=== PATIENT | male | born 1945 | race Caucasian/White ===

== ENCOUNTER 2021-02-20 15:04 | Emergency (ER) | payer MEDICARE ==
[2021-02-20 16:42] LABS: #Lymphocytes 0.7 thou/uL (1.20-3.40); #Neutrophils 14.8 thou/uL (1.40-6.50); %Basophils 0.1 % (0.0-1.0); %Eosinophils 0.2 % (0.0-10.0); %Lymphocytes 4.1 % (21.0-51.0); %Monocytes 6.1 % (0.0-10.0); %Neutrophils 89.6 % (42.0-75.0); Hemoglobin 14.8 g/dL (14.0-18.0); Mean Corpuscular Hemoglobin 29.6 pg (27.0-31.0); Mean Corpuscular Volume 92.5 fL (78.0-98.0); Mean Platelet Volume 7.3 fL (7.4-10.4); Platelet Count 331 thou/uL (130-400); RBC Distribution Width 12.5 % (11.5-14.5); Red Blood Cell (RBC) Count 4.99 mill/uL (4.70-6.10); White Blood Cell (WBC) Count 16.5 thou/uL (4.8-10.8)
[2021-02-20 17:02] LABS: ALT (SGPT) 10 U/L (8-55); AST (SGOT) 30 U/L (5-34); Albumin 3.6 g/dL (3.4-4.8); Alkaline Phosphatase 107 U/L (40-110); Anion Gap 18 mmol/L (10-20); BUN (Urea Nitrogen) 29 mg/dL (8.4-25.7); Calc. Creatinine Clearance 0 mL/min (70-130); Calcium 8.8 mg/dL (7.8-10.44); Carbon Dioxide 21 mmol/L (23-31); Chloride 104 mmol/L (98-107); Globulin 3.7 g/dL (2.4-3.5); Glucose 119 mg/dL (83-110); Magnesium 1.9 mg/dL (1.6-2.6); Potassium 4.3 mmol/L (3.5-5.1); Protein, Total 7.3 g/dL (5.8-8.1); Sodium 139 mmol/L (136-145)
[2021-02-20 17:24] LABS: CKMB 2.9 ng/mL (0-6.6)
[2021-02-20 17:41] LABS: SARS-CoV-2 NAA Rapid Test DETECTED (NotDetected)
[2021-02-20] MEDS ORDERED: Aspirin 325 MG TAB ONE (17:58)
[2021-02-20] MEDS ORDERED: Enoxaparin Sodium 100 MG/ML SYRINGE ONE (17:58)
[2021-02-20] MEDS ORDERED: cefTRIAXone\\ROCEPHIN 2 GM VIAL ONE (18:15)
[2021-02-20] MEDS ORDERED: Vancomycin HCl 2.5 GM in Sodium Chloride 0.9% 500 ML IVPB SCH (18:30)
[2021-02-20] MEDS ORDERED: Sodium Chloride 0.9% 500 ML IVPB SCH (18:30)
[2021-02-20] MEDS ORDERED: Aspirin 325 MG TAB PO SCH (18:30)
[2021-02-20] MEDS ORDERED: cefTRIAXone\\ROCEPHIN 2 GM in Sodium Chloride 0.9% 100 ML IVPB SCH (18:30)
[2021-02-20 20:15] LABS: Lactic Acid 2.3 mmol/L (0.5-2.2)
[2021-02-20 20:20] LABS: Troponin I 0.136 ng/mL (< 0.028)
[2021-02-20 20:22] LABS: Bacteria/HPF None Seen HPF (None Seen); Bilirubin Negative (Negative); Blood, Urine Negative (Negative); Clarity Clear (Clear); Glucose, Urine (Dipstick) Normal (Negative); Ketone, Urine Negative (Negative); Leukocyte Negative Leu/uL (Negative); Nitrite Negative (Negative); Protein, Urine (Dipstick) 30 mg/dL (Neg-Trace); RBC/HPF 0-3 HPF (0-3); Specific Gravity, Urine 1.023 (1.002-1.036); Squamous Epithelial 0-3 HPF (0-3); Urobilinogen Normal mg/dL (Less than 2); pH, Urine 5.5 (5.0-9.0)
== END 2021-02-20 20:49 | disposition left against medical advice (07) ==
LOC: ERS 15:04
DX: U07.1 COVID-19 (principal); D72.829 Elevated white blood cell count, unspecified; R77.8 Other specified abnormalities of plasma proteins; I10 Essential (primary) hypertension
CPT/HCPCS: 71045; 80053; 82553; 83605; 83735; 83880; 84484 ×2; 85025; 85379; 85652; 86140; 87040; 87086; 93005; 94760; 96365; 96372; 96375; 99284; U0002; 36415; 81003; 81015; J0696; J1650; J3370; J7030

== ENCOUNTER 2021-02-23 08:55 | Inpatient (IN) | payer MEDICARE ==
[2021-02-23] MEDS ORDERED: Albuterol 200 PUFF (6.7GM INHALER) ONE (10:43)
[2021-02-23] MEDS ORDERED: Dexamethasone 10 MG/ML VIAL ONE (10:43)
[2021-02-23 10:45] LABS: #Eosinphils 0.1 thou/uL (0.0-0.7); #Lymphocytes 0.8 thou/uL (1.20-3.40); #Monocytes 0.4 thou/uL (0.11-0.59); #Neutrophils 12.8 thou/uL (1.40-6.50); %Basophils 0.2 % (0.0-1.0); %Eosinophils 0.5 % (0.0-10.0); %Lymphocytes 5.7 % (21.0-51.0); %Monocytes 2.7 % (0.0-10.0); %Neutrophils 90.9 % (42.0-75.0); Hemoglobin 13.6 g/dL (14.0-18.0); Mean Corpuscular HGB CONC 32.1 g/dL (32.0-36.0); Mean Corpuscular Hemoglobin 29.7 pg (27.0-31.0); Mean Corpuscular Volume 92.5 fL (78.0-98.0); Mean Platelet Volume 7.3 fL (7.4-10.4); Platelet Count 362 thou/uL (130-400); RBC Distribution Width 12.7 % (11.5-14.5); Red Blood Cell (RBC) Count 4.58 mill/uL (4.70-6.10)
[2021-02-23 11:07] LABS: ALT (SGPT) 7 U/L (8-55); AST (SGOT) 25 U/L (5-34); Alkaline Phosphatase 106 U/L (40-110); Anion Gap 16 mmol/L (10-20); BUN (Urea Nitrogen) 19 mg/dL (8.4-25.7); Calc. Creatinine Clearance 0 mL/min (70-130); Calcium 8.3 mg/dL (7.8-10.44); Carbon Dioxide 19 mmol/L (23-31); Chloride 109 mmol/L (98-107); Globulin 3.2 g/dL (2.4-3.5); Glucose 112 mg/dL (83-110); Magnesium 1.8 mg/dL (1.6-2.6); Potassium 3.8 mmol/L (3.5-5.1); Protein, Total 6.2 g/dL (5.8-8.1); Sodium 140 mmol/L (136-145)
[2021-02-23 11:28] LABS: CKMB 1.9 ng/mL (0-6.6)
[2021-02-23] MEDS ORDERED: Benzonatate 100 MG CAP PO PRN (12:18)
[2021-02-23] MEDS ORDERED: Melatonin 3 MG TAB PO PRN (12:18)
[2021-02-23] MEDS ORDERED: Azithromycin 500 MG VIAL ONE (12:38)
[2021-02-23] MEDS ORDERED: cefTRIAXone\\ROCEPHIN 2 GM VIAL ONE (12:38)
[2021-02-23] MEDS ORDERED: Aspirin 325 MG TAB ONE (12:38)
[2021-02-23] MEDS ORDERED: Albuterol 200 PUFF (6.7GM INHALER) INH PRN (12:54)
[2021-02-23] MEDS ORDERED: Ondansetron PF 4 MG/2 ML Vial IVP PRN (14:45)
[2021-02-23] MEDS ORDERED: Ondansetron ODT 4 MG TAB SL PRN (14:45)
[2021-02-23 14:50] LABS: Troponin I 0.125 ng/mL (< 0.028)
[2021-02-23] MEDS ORDERED: Iopamidol-370 76% 500 ML 1 ML ONE (15:23)
[2021-02-23 17:01] LABS: Troponin I 0.116 ng/mL (< 0.028)
[2021-02-23] MEDS ORDERED: hydrALAZINE 20 MG/ML VIAL SLOW IVP PRN (18:47)
[2021-02-23] MEDS ORDERED: Metoprolol Tartrate 25 MG TAB PO SCH (19:00)
[2021-02-23] MEDS: guaiFENesin ER 600 MG TAB PO SCH (20:15)
[2021-02-23] MEDS: Cholecalciferol 1,000 UNITS (25 MCG) TAB PO SCH (20:15)
[2021-02-23] MEDS: Ascorbic Acid 500 mg Chewable Tablet PO SCH (20:15)
[2021-02-23] MEDS ORDERED: Famotidine 20 MG TAB PO SCH (21:00)
[2021-02-24 05:38] LABS: #Lymphocytes 0.4 thou/uL (1.20-3.40); #Monocytes 0.3 thou/uL (0.11-0.59); #Neutrophils 7.5 thou/uL (1.40-6.50); %Basophils 0.2 % (0.0-1.0); %Eosinophils 0.3 % (0.0-10.0); %Lymphocytes 5.1 % (21.0-51.0); %Neutrophils 90.3 % (42.0-75.0); Hemoglobin 12.9 g/dL (14.0-18.0); Mean Corpuscular HGB CONC 32.2 g/dL (32.0-36.0); Mean Corpuscular Hemoglobin 29.7 pg (27.0-31.0); Mean Corpuscular Volume 92.2 fL (78.0-98.0); Mean Platelet Volume 7.5 fL (7.4-10.4); Platelet Count 390 thou/uL (130-400); RBC Distribution Width 12.8 % (11.5-14.5); Red Blood Cell (RBC) Count 4.36 mill/uL (4.70-6.10); White Blood Cell (WBC) Count 8.3 thou/uL (4.8-10.8)
[2021-02-24 06:00] LABS: ALT (SGPT) 10 U/L (8-55); AST (SGOT) 21 U/L (5-34); Albumin 2.8 g/dL (3.4-4.8); Alkaline Phosphatase 96 U/L (40-110); Anion Gap 16 mmol/L (10-20); BUN (Urea Nitrogen) 21 mg/dL (8.4-25.7); Bilirubin, Total 0.7 mg/dL (0.2-1.2); Calc. Creatinine Clearance 103 mL/min (70-130); Calcium 8.3 mg/dL (7.8-10.44); Carbon Dioxide 19 mmol/L (23-31); Chloride 108 mmol/L (98-107); Globulin 3.2 g/dL (2.4-3.5); Glucose 152 mg/dL (83-110); Potassium 3.9 mmol/L (3.5-5.1); Sodium 139 mmol/L (136-145)
[2021-02-24] MEDS: Finasteride 5 MG TAB PO SCH (09:36)
[2021-02-24] MEDS: Zinc Sulfate 220 MG CAP PO SCH (09:36)
[2021-02-24] MEDS: Enoxaparin Sodium 40 MG/0.4 ML SYRINGE SC SCH (09:36)
[2021-02-24] MEDS: Aspirin 81 mg Enteric Coated Tablet PO SCH (09:36)
[2021-02-24] MEDS: Ascorbic Acid 500 mg Chewable Tablet PO SCH ×2 (09:36→20:34)
[2021-02-24] MEDS: guaiFENesin ER 600 MG TAB PO SCH ×2 (09:36→20:34)
[2021-02-24] MEDS: Metoprolol Tartrate 25 MG TAB PO SCH (09:36)
[2021-02-24] MEDS: Dexamethasone 4 MG TAB PO SCH (09:36)
[2021-02-24] MEDS: Azithromycin 500 MG in Sodium Chloride 0.9% 250 ML 250 ML IVPB SCH (10:22)
[2021-02-24] MEDS: cefTRIAXone\\ROCEPHIN 2 GM in Sodium Chloride 0.9% 100 ML IVPB SCH (13:40)
[2021-02-24] MEDS: Cholecalciferol 1,000 UNITS (25 MCG) TAB PO SCH (20:34)
[2021-02-24] MEDS: Nystatin Ointment 15 GM TUBE TOP SCH (20:35)
[2021-02-25] MEDS ORDERED: hydrOXYzine 25 MG TAB PO PRN (00:19)
[2021-02-25] MEDS: Lorazepam 2 MG/ML VIAL SLOW IVP PRN ×2 (01:22→02:03)
[2021-02-25 06:10] LABS: ALT (SGPT) 12 U/L (8-55); AST (SGOT) 24 U/L (5-34); Albumin 2.8 g/dL (3.4-4.8); Alkaline Phosphatase 94 U/L (40-110); Anion Gap 14 mmol/L (10-20); BUN (Urea Nitrogen) 28 mg/dL (8.4-25.7); Bilirubin, Total 0.6 mg/dL (0.2-1.2); Calc. Creatinine Clearance 93 mL/min (70-130); Calcium 8.5 mg/dL (7.8-10.44); Carbon Dioxide 21 mmol/L (23-31); Chloride 111 mmol/L (98-107); Globulin 3.6 g/dL (2.4-3.5); Glucose 142 mg/dL (83-110); Protein, Total 6.4 g/dL (5.8-8.1); Sodium 142 mmol/L (136-145)
[2021-02-25] MEDS: Enoxaparin Sodium 40 MG/0.4 ML SYRINGE SC SCH (08:53)
[2021-02-25] MEDS: guaiFENesin ER 600 MG TAB PO SCH ×2 (08:53→21:32)
[2021-02-25] MEDS: Metoprolol Tartrate 25 MG TAB PO SCH (08:53)
[2021-02-25] MEDS: Dexamethasone 4 MG TAB PO SCH (08:53)
[2021-02-25] MEDS: Finasteride 5 MG TAB PO SCH (08:53)
[2021-02-25] MEDS: Zinc Sulfate 220 MG CAP PO SCH (08:53)
[2021-02-25] MEDS: Aspirin 81 mg Enteric Coated Tablet PO SCH (08:53)
[2021-02-25] MEDS: Ascorbic Acid 500 mg Chewable Tablet PO SCH ×2 (08:53→21:32)
[2021-02-25] MEDS: Nystatin Ointment 15 GM TUBE TOP SCH ×2 (08:54→21:32)
[2021-02-25] MEDS: Azithromycin 500 MG in Sodium Chloride 0.9% 250 ML 250 ML IVPB SCH (09:00)
[2021-02-25] MEDS: cefTRIAXone\\ROCEPHIN 2 GM in Sodium Chloride 0.9% 100 ML IVPB SCH (14:27)
[2021-02-25] MEDS ORDERED: OLANZapine ODT 5 MG TAB SL PRN (18:24)
[2021-02-25 19:37] LABS: Thyroid Stimulating Hormone 0.0658 uIU/mL (0.35-4.94)
[2021-02-25] MEDS: OLANZapine 10 MG VIAL IM PRN (21:08)
[2021-02-25] MEDS: Cholecalciferol 1,000 UNITS (25 MCG) TAB PO SCH (21:32)
[2021-02-25] MEDS ORDERED: diphenhydrAMINE 12.5 MG/5 ML UDCUP PO SCH (23:28)
[2021-02-25] MEDS ORDERED: diphenhydrAMINE 50 MG/ML VIAL IVP SCH (23:30)
[2021-02-26 05:49] LABS: #Basophils 0.1 thou/uL (0.0-0.2); #Lymphocytes 0.4 thou/uL (1.20-3.40); #Neutrophils 11.9 thou/uL (1.40-6.50); %Basophils 0.6 % (0.0-1.0); %Eosinophils 0.2 % (0.0-10.0); %Lymphocytes 3.2 % (21.0-51.0); %Monocytes 7.4 % (0.0-10.0); %Neutrophils 88.7 % (42.0-75.0); Hemoglobin 12.1 g/dL (14.0-18.0); Mean Corpuscular HGB CONC 33.1 g/dL (32.0-36.0); Mean Corpuscular Hemoglobin 30.4 pg (27.0-31.0); Mean Corpuscular Volume 91.7 fL (78.0-98.0); Mean Platelet Volume 7.4 fL (7.4-10.4); Platelet Count 334 thou/uL (130-400); RBC Distribution Width 12.8 % (11.5-14.5); Red Blood Cell (RBC) Count 3.98 mill/uL (4.70-6.10); White Blood Cell (WBC) Count 13.4 thou/uL (4.8-10.8)
[2021-02-26 06:16] LABS: ALT (SGPT) 11 U/L (8-55); AST (SGOT) 21 U/L (5-34); Albumin 2.6 g/dL (3.4-4.8); Alkaline Phosphatase 85 U/L (40-110); Anion Gap 14 mmol/L (10-20); BUN (Urea Nitrogen) 31 mg/dL (8.4-25.7); Bilirubin, Total 0.7 mg/dL (0.2-1.2); CRP (Inflammatory) 5.11 mg/dL (= or < 0.5); Calc. Creatinine Clearance 102 mL/min (70-130); Calcium 8.3 mg/dL (7.8-10.44); Carbon Dioxide 20 mmol/L (23-31); Chloride 113 mmol/L (98-107); Globulin 2.9 g/dL (2.4-3.5); Glucose 127 mg/dL (83-110); Potassium 3.9 mmol/L (3.5-5.1); Protein, Total 5.5 g/dL (5.8-8.1); Sodium 143 mmol/L (136-145)
[2021-02-26] MEDS: Zinc Sulfate 220 MG CAP PO SCH (10:04)
[2021-02-26] MEDS: Finasteride 5 MG TAB PO SCH (10:04)
[2021-02-26] MEDS: Ascorbic Acid 500 mg Chewable Tablet PO SCH ×3 (10:04→22:41)
[2021-02-26] MEDS: guaiFENesin ER 600 MG TAB PO SCH ×3 (10:05→22:41)
[2021-02-26] MEDS: Metoprolol Tartrate 25 MG TAB PO SCH (10:05)
[2021-02-26] MEDS: Enoxaparin Sodium 40 MG/0.4 ML SYRINGE SC SCH (10:05)
[2021-02-26] MEDS: Dexamethasone 4 MG TAB PO SCH (10:05)
[2021-02-26] MEDS: Aspirin 81 mg Enteric Coated Tablet PO SCH (10:05)
[2021-02-26] MEDS: Nystatin Ointment 15 GM TUBE TOP SCH ×3 (10:06→22:41)
[2021-02-26] MEDS: Azithromycin 500 MG in Sodium Chloride 0.9% 250 ML 250 ML IVPB SCH (10:09)
[2021-02-26] MEDS ORDERED: Dexamethasone 4 MG TAB PO SCH (12:30)
[2021-02-26] MEDS: cefTRIAXone\\ROCEPHIN 2 GM in Sodium Chloride 0.9% 100 ML IVPB SCH (13:04)
[2021-02-26] MEDS: OLANZapine 10 MG VIAL IM PRN (16:56)
[2021-02-26] MEDS: Cholecalciferol 1,000 UNITS (25 MCG) TAB PO SCH (20:31)
[2021-02-27 07:10] LABS: Hemoglobin 13.3 g/dL (14.0-18.0); Mean Corpuscular HGB CONC 32.1 g/dL (32.0-36.0); Mean Corpuscular Hemoglobin 30.3 pg (27.0-31.0); Mean Corpuscular Volume 94.2 fL (78.0-98.0); Platelet Count 278 thou/uL (130-400); RBC Distribution Width 13.2 % (11.5-14.5); Red Blood Cell (RBC) Count 4.39 mill/uL (4.70-6.10); White Blood Cell (WBC) Count 12.9 thou/uL (4.8-10.8)
[2021-02-27 07:12] LABS: ALT (SGPT) 11 U/L (8-55); AST (SGOT) 26 U/L (5-34); Albumin 2.5 g/dL (3.4-4.8); Alkaline Phosphatase 105 U/L (40-110); Anion Gap 18 mmol/L (10-20); BUN (Urea Nitrogen) 30 mg/dL (8.4-25.7); Bilirubin, Total 0.8 mg/dL (0.2-1.2); Calc. Creatinine Clearance 93 mL/min (70-130); Calcium 7.8 mg/dL (7.8-10.44); Carbon Dioxide 15 mmol/L (23-31); Chloride 116 mmol/L (98-107); Globulin 3.5 g/dL (2.4-3.5); Glucose 125 mg/dL (83-110); Potassium 4.8 mmol/L (3.5-5.1); Sodium 144 mmol/L (136-145)
[2021-02-27 08:22] LABS: Lymphocytes 6 % (21-51); MDiff Complete? YES; Monocytes 5 % (0-10); Neutrophil 85 % (42-75); Platelet Morphology Comment Appears Adequate; Polychromasia SLIGHT = 2-3 cells (100X) (0-2/hpf); Reactive Lymphocytes 4 % (0-10)
[2021-02-27] MEDS: Dexamethasone 4 MG TAB PO SCH (09:46)
[2021-02-27] MEDS: Ascorbic Acid 500 mg Chewable Tablet PO SCH ×2 (09:47→20:04)
[2021-02-27] MEDS: Metoprolol Tartrate 25 MG TAB PO SCH (09:47)
[2021-02-27] MEDS: Finasteride 5 MG TAB PO SCH (09:47)
[2021-02-27] MEDS: Zinc Sulfate 220 MG CAP PO SCH (09:47)
[2021-02-27] MEDS: guaiFENesin ER 600 MG TAB PO SCH ×2 (09:47→20:04)
[2021-02-27] MEDS: Aspirin 81 mg Enteric Coated Tablet PO SCH (09:47)
[2021-02-27] MEDS: Nystatin Ointment 15 GM TUBE TOP SCH ×2 (09:48→20:04)
[2021-02-27] MEDS: Enoxaparin Sodium 40 MG/0.4 ML SYRINGE SC SCH (09:48)
[2021-02-27] MEDS: Azithromycin 500 MG in Sodium Chloride 0.9% 250 ML 250 ML IVPB SCH (12:31)
[2021-02-27 12:48] LABS: Lactic Acid 1.6 mmol/L (0.5-2.2)
[2021-02-27 17:39] LABS: Actual Bicarbonate (HCO3a) 26.1 mEq/L (22-28); Base Excess (BEa) 1.5 mEq/L (-2.0 to +3.0); Calcium, Ionized (arterial) 1.22 mmol/L (1.12-1.30); Carboxyhemoglobin (COHb) 0.3 gm% (0.0-3.0); Hemoglobin (Hb) 13.7 g/dL (14.0-18.0); O2 Tension (PaO2), arterial 65.9 mmHg (> 70.0); Potassium - ABG Lab 4.18 mmol/L (3.70-5.30); pH, Arterial 7.42 (7.35-7.45)
[2021-02-27 17:42] LABS: Puncture Site LRA
[2021-02-27] MEDS: cefTRIAXone\\ROCEPHIN 2 GM in Sodium Chloride 0.9% 100 ML IVPB SCH (18:03)
[2021-02-27] MEDS: Cholecalciferol 1,000 UNITS (25 MCG) TAB PO SCH (20:04)
[2021-02-27] MEDS ORDERED: Melatonin 3 MG TAB PO SCH (21:00)
[2021-02-28] MEDS ORDERED: hydrALAZINE 25 MG TAB PO PRN (07:26)
[2021-02-28] MEDS: Nystatin Ointment 15 GM TUBE TOP SCH (08:11)
[2021-02-28] MEDS: Aspirin 81 mg Enteric Coated Tablet PO SCH (08:13)
[2021-02-28] MEDS: Ascorbic Acid 500 mg Chewable Tablet PO SCH ×2 (08:13→20:39)
[2021-02-28] MEDS: Zinc Sulfate 220 MG CAP PO SCH (08:13)
[2021-02-28] MEDS: Metoprolol Tartrate 25 MG TAB PO SCH (08:13)
[2021-02-28] MEDS: Finasteride 5 MG TAB PO SCH (08:14)
[2021-02-28] MEDS: Dexamethasone 4 MG TAB PO SCH (08:14)
[2021-02-28] MEDS: Enoxaparin Sodium 40 MG/0.4 ML SYRINGE SC SCH (08:15)
[2021-02-28] MEDS ORDERED: Amoxicillin/Potassium Clav 875 MG TAB PO SCH (09:00)
[2021-02-28] MEDS ORDERED: Azithromycin 250 MG TAB PO SCH (09:00)
[2021-02-28 13:22] LABS: ALT (SGPT) 13 U/L (8-55); AST (SGOT) 25 U/L (5-34); Albumin 2.6 g/dL (3.4-4.8); Alkaline Phosphatase 111 U/L (40-110); Anion Gap 10 mmol/L (10-20); BUN (Urea Nitrogen) 33 mg/dL (8.4-25.7); Bilirubin, Total 0.9 mg/dL (0.2-1.2); CRP (Inflammatory) 4.12 mg/dL (= or < 0.5); Calc. Creatinine Clearance 116 mL/min (70-130); Calcium 8.4 mg/dL (7.8-10.44); Carbon Dioxide 23 mmol/L (23-31); Chloride 113 mmol/L (98-107); Globulin 3.7 g/dL (2.4-3.5); Glucose 160 mg/dL (83-110); Potassium 4.3 mmol/L (3.5-5.1); Protein, Total 6.3 g/dL (5.8-8.1); Sodium 142 mmol/L (136-145)
[2021-02-28 13:44] LABS: Actual Bicarbonate (HCO3v) 24 mEq/L (22-28); Base Excess -0.7 mEq/L (-2.0 to +3.0); Calcium, Ionized (venous) 1.14 mmol/L (1.16-1.32); Chloride (VBG) 112 mmol/L (98-106); Hemoglobin (Hb) 14.7 g/dL (12.6-17.4); Potassium (VBG) 4.07 mmol/L (3.70-5.30); Sodium 143.6 mmol/L (133-146); pH (venous) 7.41 (7.32-7.43)
[2021-02-28 13:48] LABS: Hemoglobin 14.5 g/dL (14.0-18.0); Mean Corpuscular HGB CONC 32.2 g/dL (32.0-36.0); Mean Corpuscular Hemoglobin 30.2 pg (27.0-31.0); Platelet Count 324 thou/uL (130-400); RBC Distribution Width 12.9 % (11.5-14.5); White Blood Cell (WBC) Count 18.6 thou/uL (4.8-10.8)
[2021-02-28 14:07] LABS: Lactic Acid 1.9 mmol/L (0.5-2.2)
[2021-02-28 14:10] LABS: Anion Gap 11 mmol/L (10-20); BUN (Urea Nitrogen) 33 mg/dL (8.4-25.7); Calc. Creatinine Clearance 97 mL/min (70-130); Calcium 8.6 mg/dL (7.8-10.44); Carbon Dioxide 24 mmol/L (23-31); Chloride 112 mmol/L (98-107); Glucose 164 mg/dL (83-110); MDiff Complete? YES; Potassium 4.3 mmol/L (3.5-5.1); Sodium 143 mmol/L (136-145)
[2021-02-28 14:11] LABS: Band 1 % (5-11); Lymphocytes 2 % (21-51); Monocytes 5 % (0-10); Neutrophil 90 % (42-75); Platelet Morphology Comment Appears Adequate; Polychromasia SLIGHT = 2-3 cells (100X) (0-2/hpf); Reactive Lymphocytes 2 % (0-10)
[2021-02-28 15:27] LABS: Troponin I 1.361 ng/mL (< 0.028)
[2021-02-28] MEDS ORDERED: Sterile Water 10 ML VIAL FS PRN (15:45)
[2021-02-28] MEDS ORDERED: OLANZapine 10 MG VIAL IM SCH (15:45)
[2021-02-28] MEDS ORDERED: VANCOMYCIN 2 GRAM/400 ML BAG 2 GM in Premix Bag 1 BAG IVPB SCH (15:45)
[2021-02-28] MEDS ORDERED: MEROPENEM 1 GM/50 ML 1 GM in Premix Bag 1 BAG IVPB SCH (16:00)
[2021-02-28 19:35] LABS: Critical Call Chem Troponin I RESULT DECREASING; Troponin I 0.833 ng/mL (< 0.028)
[2021-02-28] MEDS: MEROPENEM 1 GM/50 ML 1 GM in Premix Bag 1 BAG IVPB SCH (20:39)
[2021-02-28] MEDS ORDERED: Meropenem 1 GM in Sodium Chloride 0.9% 100 ML IVPB SCH (22:00)
[2021-03-01] MEDS ORDERED: Labetalol HCl 100 MG/20 ML VIAL SLOW IVP SCH (01:30)
[2021-03-01 02:43] LABS: Troponin I 1.479 ng/mL (< 0.028)
[2021-03-01] MEDS: MEROPENEM 1 GM/50 ML 1 GM in Premix Bag 1 BAG IVPB SCH ×3 (04:22→20:19)
[2021-03-01 06:05] LABS: Anion Gap 15 mmol/L (10-20); BUN (Urea Nitrogen) 33 mg/dL (8.4-25.7); Calc. Creatinine Clearance 99 mL/min (70-130); Calcium 8.6 mg/dL (7.8-10.44); Carbon Dioxide 21 mmol/L (23-31); Chloride 114 mmol/L (98-107); Glucose 107 mg/dL (83-110); Potassium 4.3 mmol/L (3.5-5.1); Sodium 146 mmol/L (136-145)
[2021-03-01 08:56] LABS: Hemoglobin 14.2 g/dL (14.0-18.0); Mean Corpuscular Hemoglobin 30.1 pg (27.0-31.0); Mean Corpuscular Volume 93.9 fL (78.0-98.0); Mean Platelet Volume 7.9 fL (7.4-10.4); Platelet Count 304 thou/uL (130-400); Red Blood Cell (RBC) Count 4.73 mill/uL (4.70-6.10)
[2021-03-01 08:58] LABS: Band 2 % (5-11); Lymphocytes 3 % (21-51); Metamyelocyte 1 % (0-0); Monocytes 4 % (0-10); Neutrophil 88 % (42-75); Nucleated RBC 1 % (0)
[2021-03-01 09:00] LABS: Hypersemented Neutrophil SLIGHT; MDiff Complete? YES; Polychromasia SLIGHT = 2-3 cells (100X) (0-2/hpf); Reactive Lymphocytes 2 % (0-10)
[2021-03-01] MEDS: Aspirin 81 mg Enteric Coated Tablet PO SCH (09:00)
[2021-03-01] MEDS: Ascorbic Acid 500 mg Chewable Tablet PO SCH ×2 (09:00→20:19)
[2021-03-01] MEDS: Finasteride 5 MG TAB PO SCH (09:00)
[2021-03-01] MEDS: Metoprolol Tartrate 25 MG TAB PO SCH (09:00)
[2021-03-01] MEDS ORDERED: Dexamethasone 10 MG in Sodium Chloride 0.9% 50 ML IVPB SCH (09:00)
[2021-03-01] MEDS: Dexamethasone 10 MG/ML VIAL SLOW IVP SCH (09:00)
[2021-03-01] MEDS: Enoxaparin Sodium 40 MG/0.4 ML SYRINGE SC SCH (09:00)
[2021-03-01] MEDS: Zinc Sulfate 220 MG CAP PO SCH (09:00)
[2021-03-01] MEDS ORDERED: Iopamidol-370 76% 500 ML 1 ML ONE (10:49)
[2021-03-01] MEDS: VANCOMYCIN 2 GRAM/400 ML BAG 2 GM in Premix Bag 1 BAG IVPB SCH (16:03)
[2021-03-01 18:27] LABS: Troponin I 1.713 ng/mL (< 0.028)
[2021-03-01] MEDS: Enoxaparin Sodium 120 MG/0.8 ML SYRINGE SC SCH (21:32)
[2021-03-02] MEDS ORDERED: Acetaminophen 325 MG Suppository PR SCH (00:15)
[2021-03-02 03:43] LABS: Hemoglobin 13.9 g/dL (14.0-18.0); Mean Corpuscular HGB CONC 31.9 g/dL (32.0-36.0); Mean Corpuscular Hemoglobin 29.9 pg (27.0-31.0); Mean Corpuscular Volume 93.8 fL (78.0-98.0); Mean Platelet Volume 8.2 fL (7.4-10.4); Platelet Count 246 thou/uL (130-400); RBC Distribution Width 13.2 % (11.5-14.5); Red Blood Cell (RBC) Count 4.64 mill/uL (4.70-6.10); White Blood Cell (WBC) Count 17.9 thou/uL (4.8-10.8)
[2021-03-02 03:46] LABS: Anion Gap 15 mmol/L (10-20); BUN (Urea Nitrogen) 26 mg/dL (8.4-25.7); Calc. Creatinine Clearance 108 mL/min (70-130); Calcium 8.2 mg/dL (7.8-10.44); Carbon Dioxide 21 mmol/L (23-31); Chloride 116 mmol/L (98-107); Glucose 98 mg/dL (83-110); Potassium 3.9 mmol/L (3.5-5.1); Sodium 148 mmol/L (136-145)
[2021-03-02] MEDS: MEROPENEM 1 GM/50 ML 1 GM in Premix Bag 1 BAG IVPB SCH ×3 (03:53→20:58)
[2021-03-02 04:05] LABS: Critical Call Chem Troponin I RESULT DECREASING; Troponin I 1.695 ng/mL (< 0.028)
[2021-03-02 05:35] LABS: Band 1 % (5-11); Eosinophils 2 % (0-10); Lymphocytes 5 % (21-51); MDiff Complete? YES; Monocytes 3 % (0-10); Neutrophil 88 % (42-75); Reactive Lymphocytes 1 % (0-10)
[2021-03-02] MEDS: Enoxaparin Sodium 120 MG/0.8 ML SYRINGE SC SCH ×2 (09:31→20:59)
[2021-03-02] MEDS: Zinc Sulfate 220 MG CAP PO SCH (09:31)
[2021-03-02] MEDS: Finasteride 5 MG TAB PO SCH (09:31)
[2021-03-02] MEDS: Dexamethasone 10 MG/ML VIAL SLOW IVP SCH (09:32)
[2021-03-02] MEDS: Aspirin 81 mg Enteric Coated Tablet PO SCH (09:32)
[2021-03-02] MEDS: Ascorbic Acid 500 mg Chewable Tablet PO SCH ×2 (09:32→20:59)
[2021-03-02] MEDS: Metoprolol Tartrate 25 MG TAB PO SCH ×2 (09:32→21:00)
[2021-03-02 16:18] LABS: Vancomycin, Trough 24.4 ug/mL
[2021-03-02] MEDS: VANCOMYCIN 2 GRAM/400 ML BAG 2 GM in Premix Bag 1 BAG IVPB SCH (16:42)
[2021-03-02] MEDS ORDERED: Lorazepam 2 MG/ML VIAL SLOW IVP SCH (23:45)
[2021-03-03] MEDS: MEROPENEM 1 GM/50 ML 1 GM in Premix Bag 1 BAG IVPB SCH ×3 (04:38→21:32)
[2021-03-03 05:40] LABS: Magnesium 2.1 mg/dL (1.6-2.6)
[2021-03-03 07:52] LABS: #Lymphocytes 0.6 thou/uL (1.20-3.40); #Monocytes 0.6 thou/uL (0.11-0.59); %Eosinophils 0.2 % (0.0-10.0); %Lymphocytes 3.4 % (21.0-51.0); %Monocytes 3.3 % (0.0-10.0); %Neutrophils 93.1 % (42.0-75.0); Hemoglobin 13.3 g/dL (14.0-18.0); Mean Corpuscular Hemoglobin 29.5 pg (27.0-31.0); Mean Corpuscular Volume 95.3 fL (78.0-98.0); Platelet Count 222 thou/uL (130-400); RBC Distribution Width 13.3 % (11.5-14.5); Red Blood Cell (RBC) Count 4.49 mill/uL (4.70-6.10); White Blood Cell (WBC) Count 17.2 thou/uL (4.8-10.8)
[2021-03-03 08:09] LABS: ALT (SGPT) 11 U/L (8-55); AST (SGOT) 21 U/L (5-34); Albumin 2.6 g/dL (3.4-4.8); Alkaline Phosphatase 117 U/L (40-110); Anion Gap 11 mmol/L (10-20); BUN (Urea Nitrogen) 28 mg/dL (8.4-25.7); Bilirubin, Total 1.1 mg/dL (0.2-1.2); Calc. Creatinine Clearance 110 mL/min (70-130); Calcium 8.2 mg/dL (7.8-10.44); Carbon Dioxide 23 mmol/L (23-31); Chloride 114 mmol/L (98-107); Glucose 121 mg/dL (83-110); Potassium 4.3 mmol/L (3.5-5.1); Protein, Total 5.6 g/dL (5.8-8.1); Sodium 144 mmol/L (136-145)
[2021-03-03] MEDS: Zinc Sulfate 220 MG CAP PO SCH (10:00)
[2021-03-03] MEDS: Aspirin 81 mg Enteric Coated Tablet PO SCH (10:01)
[2021-03-03] MEDS: Finasteride 5 MG TAB PO SCH (10:01)
[2021-03-03] MEDS: Ascorbic Acid 500 mg Chewable Tablet PO SCH ×2 (10:01→21:33)
[2021-03-03] MEDS: Metoprolol Tartrate 25 MG TAB PO SCH ×2 (10:02→21:34)
[2021-03-03] MEDS: Enoxaparin Sodium 120 MG/0.8 ML SYRINGE SC SCH ×2 (10:03→21:35)
[2021-03-03] MEDS: Dextrose 5% in Water 1,000 ML IV SCH ×2 (10:05→21:59)
[2021-03-03] MEDS: Dexamethasone 10 MG/ML VIAL SLOW IVP SCH (10:05)
[2021-03-03] MEDS: Albuterol 200 PUFF (6.7GM INHALER) INH SCH ×2 (14:34→21:33)
[2021-03-03] MEDS: VANCOMYCIN 1.75 GM/350 ML BAG 1.75 GM in Premix Bag 1 BAG IVPB SCH (16:30)
[2021-03-04] MEDS: Albuterol 200 PUFF (6.7GM INHALER) INH SCH ×4 (01:21→18:52)
[2021-03-04] MEDS: MEROPENEM 1 GM/50 ML 1 GM in Premix Bag 1 BAG IVPB SCH ×3 (05:06→21:06)
[2021-03-04] MEDS ORDERED: Lorazepam 2 MG/ML VIAL ONE (05:50)
[2021-03-04 09:40] LABS: Hemoglobin 14.2 g/dL (14.0-18.0); Mean Corpuscular HGB CONC 31.3 g/dL (32.0-36.0); Mean Corpuscular Hemoglobin 29.8 pg (27.0-31.0); Mean Platelet Volume 8.7 fL (7.4-10.4); Platelet Count 248 thou/uL (130-400); RBC Distribution Width 13.6 % (11.5-14.5); Red Blood Cell (RBC) Count 4.76 mill/uL (4.70-6.10); White Blood Cell (WBC) Count 26.3 thou/uL (4.8-10.8)
[2021-03-04] MEDS: Zinc Sulfate 220 MG CAP PO SCH (09:58)
[2021-03-04] MEDS: Aspirin 81 mg Enteric Coated Tablet PO SCH (09:58)
[2021-03-04] MEDS: Metoprolol Tartrate 25 MG TAB PO SCH ×2 (09:58→21:06)
[2021-03-04] MEDS: Finasteride 5 MG TAB PO SCH (09:58)
[2021-03-04] MEDS: Enoxaparin Sodium 120 MG/0.8 ML SYRINGE SC SCH ×2 (09:58→21:05)
[2021-03-04] MEDS: Ascorbic Acid 500 mg Chewable Tablet PO SCH ×2 (09:58→21:06)
[2021-03-04] MEDS: Dexamethasone 10 MG/ML VIAL SLOW IVP SCH (09:59)
[2021-03-04 10:01] LABS: Magnesium 2.2 mg/dL (1.6-2.6)
[2021-03-04 10:02] LABS: ALT (SGPT) 12 U/L (8-55); AST (SGOT) 20 U/L (5-34); Albumin 2.8 g/dL (3.4-4.8); Alkaline Phosphatase 132 U/L (40-110); Anion Gap 12 mmol/L (10-20); BUN (Urea Nitrogen) 30 mg/dL (8.4-25.7); Bilirubin, Total 1.1 mg/dL (0.2-1.2); Calc. Creatinine Clearance 113 mL/min (70-130); Calcium 8.6 mg/dL (7.8-10.44); Carbon Dioxide 25 mmol/L (23-31); Chloride 113 mmol/L (98-107); Globulin 3.5 g/dL (2.4-3.5); Glucose 110 mg/dL (83-110); Potassium 4.5 mmol/L (3.5-5.1); Protein, Total 6.3 g/dL (5.8-8.1); Sodium 145 mmol/L (136-145)
[2021-03-04 10:49] LABS: Band 3 % (5-11); Lymphocytes 3 % (21-51); MDiff Complete? YES; Metamyelocyte 1 % (0-0); Monocytes 4 % (0-10); Neutrophil 89 % (42-75); Platelet Morphology Comment Appears Adequate; RBC Morphology Normal
[2021-03-04] MEDS: VANCOMYCIN 1.75 GM/350 ML BAG 1.75 GM in Premix Bag 1 BAG IVPB SCH (16:32)
[2021-03-04 18:18] LABS: Vancomycin, Trough 14.9 ug/mL
[2021-03-05] MEDS: Lorazepam 2 MG/ML VIAL SLOW IVP PRN ×2 (00:35→19:38)
[2021-03-05] MEDS: Albuterol 200 PUFF (6.7GM INHALER) INH SCH ×4 (00:48→18:09)
[2021-03-05] MEDS: MEROPENEM 1 GM/50 ML 1 GM in Premix Bag 1 BAG IVPB SCH ×3 (05:18→21:04)
[2021-03-05] MEDS: Enoxaparin Sodium 120 MG/0.8 ML SYRINGE SC SCH ×2 (08:50→23:21)
[2021-03-05] MEDS: Dexamethasone 10 MG/ML VIAL SLOW IVP SCH (08:52)
[2021-03-05] MEDS: Finasteride 5 MG TAB PO SCH ×2 (09:46→09:54)
[2021-03-05] MEDS: Ascorbic Acid 500 mg Chewable Tablet PO SCH ×3 (09:46→23:22)
[2021-03-05] MEDS: Aspirin 81 mg Enteric Coated Tablet PO SCH ×2 (09:46→09:54)
[2021-03-05] MEDS: Zinc Sulfate 220 MG CAP PO SCH ×2 (09:46→10:54)
[2021-03-05] MEDS: Metoprolol Tartrate 25 MG TAB PO SCH ×3 (09:46→23:23)
[2021-03-05 11:06] LABS: Mean Corpuscular HGB CONC 30.9 g/dL (32.0-36.0); Mean Corpuscular Hemoglobin 28.9 pg (27.0-31.0); Mean Corpuscular Volume 93.7 fL (78.0-98.0); Mean Platelet Volume 8.9 fL (7.4-10.4); Platelet Count 210 thou/uL (130-400); RBC Distribution Width 13.5 % (11.5-14.5); Red Blood Cell (RBC) Count 4.49 mill/uL (4.70-6.10); White Blood Cell (WBC) Count 18.2 thou/uL (4.8-10.8)
[2021-03-05 11:33] LABS: Anion Gap 11 mmol/L (10-20); BUN (Urea Nitrogen) 27 mg/dL (8.4-25.7); Calc. Creatinine Clearance 120 mL/min (70-130); Calcium 8.3 mg/dL (7.8-10.44); Carbon Dioxide 23 mmol/L (23-31); Chloride 115 mmol/L (98-107); Glucose 84 mg/dL (83-110); Potassium 4.6 mmol/L (3.5-5.1); Sodium 144 mmol/L (136-145)
[2021-03-05 11:56] LABS: Band 2 % (5-11); Lymphocytes 5 % (21-51); MDiff Complete? YES; Monocytes 4 % (0-10); Neutrophil 89 % (42-75); Platelet Morphology Comment Appears Adequate; RBC Morphology Normal
[2021-03-05] MEDS: VANCOMYCIN 1.75 GM/350 ML BAG 1.75 GM in Premix Bag 1 BAG IVPB SCH (16:57)
[2021-03-05 17:12] LABS: Actual Bicarbonate (HCO3a) 21.6 mEq/L (22-28); Base Excess (BEa) -2.3 mEq/L (-2.0 to +3.0); CO2 Tension 34.5 mmHg (35.0-45.0); Calcium, Ionized (arterial) 1.22 mmol/L (1.12-1.30); Carboxyhemoglobin (COHb) 0.7 gm% (0.0-3.0); Hemoglobin (Hb) 13.7 g/dL (14.0-18.0); Potassium - ABG Lab 4.28 mmol/L (3.70-5.30); pH, Arterial 7.41 (7.35-7.45)
[2021-03-05 17:15] LABS: Puncture Site RRA
[2021-03-05] MEDS ORDERED: Metoprolol Tartrate 5 MG/5 ML VIAL IVP SCH (23:45)
[2021-03-06] MEDS: Albuterol 200 PUFF (6.7GM INHALER) INH SCH ×4 (01:35→18:00)
[2021-03-06] MEDS: Lorazepam 2 MG/ML VIAL SLOW IVP PRN ×2 (03:19→20:42)
[2021-03-06] MEDS: MEROPENEM 1 GM/50 ML 1 GM in Premix Bag 1 BAG IVPB SCH ×3 (05:07→20:41)
[2021-03-06] MEDS: Enoxaparin Sodium 120 MG/0.8 ML SYRINGE SC SCH ×2 (09:46→20:41)
[2021-03-06] MEDS: Dexamethasone 10 MG/ML VIAL SLOW IVP SCH (09:46)
[2021-03-06] MEDS: Finasteride 5 MG TAB PO SCH (10:08)
[2021-03-06] MEDS: Ascorbic Acid 500 mg Chewable Tablet PO SCH ×2 (10:08→20:59)
[2021-03-06] MEDS: Metoprolol Tartrate 25 MG TAB PO SCH ×3 (10:08→22:20)
[2021-03-06] MEDS: Zinc Sulfate 220 MG CAP PO SCH (10:08)
[2021-03-06] MEDS: Aspirin 81 mg Enteric Coated Tablet PO SCH (10:08)
[2021-03-06] MEDS: BARICITINIB 2 MG TAB PO SCH (11:11)
[2021-03-06 13:25] LABS: #Lymphocytes 0.4 thou/uL (1.20-3.40); #Monocytes 0.5 thou/uL (0.11-0.59); #Neutrophils 16.1 thou/uL (1.40-6.50); %Eosinophils 0.1 % (0.0-10.0); %Lymphocytes 2.4 % (21.0-51.0); %Monocytes 2.9 % (0.0-10.0); %Neutrophils 94.6 % (42.0-75.0); Hemoglobin 12.8 g/dL (14.0-18.0); Mean Corpuscular HGB CONC 31.3 g/dL (32.0-36.0); Mean Corpuscular Hemoglobin 29.2 pg (27.0-31.0); Mean Corpuscular Volume 93.3 fL (78.0-98.0); Mean Platelet Volume 8.8 fL (7.4-10.4); Platelet Count 202 thou/uL (130-400); RBC Distribution Width 13.4 % (11.5-14.5); Red Blood Cell (RBC) Count 4.37 mill/uL (4.70-6.10)
[2021-03-06 14:08] LABS: Anion Gap 13 mmol/L (10-20); BUN (Urea Nitrogen) 31 mg/dL (8.4-25.7); Calc. Creatinine Clearance 118 mL/min (70-130); Calcium 8.5 mg/dL (7.8-10.44); Carbon Dioxide 24 mmol/L (23-31); Chloride 115 mmol/L (98-107); Glucose 111 mg/dL (83-110); Potassium 4.4 mmol/L (3.5-5.1); Sodium 148 mmol/L (136-145)
[2021-03-06] MEDS: VANCOMYCIN 1.75 GM/350 ML BAG 1.75 GM in Premix Bag 1 BAG IVPB SCH (16:09)
[2021-03-06 16:52] LABS: Vancomycin, Trough 19.2 ug/mL
[2021-03-07] MEDS: Albuterol 200 PUFF (6.7GM INHALER) INH SCH ×4 (01:18→17:44)
[2021-03-07] MEDS: MEROPENEM 1 GM/50 ML 1 GM in Premix Bag 1 BAG IVPB SCH ×3 (03:46→21:46)
[2021-03-07 07:05] LABS: Hemoglobin 12.9 g/dL (14.0-18.0); Mean Corpuscular HGB CONC 32.5 g/dL (32.0-36.0); Mean Corpuscular Hemoglobin 30.5 pg (27.0-31.0); Mean Platelet Volume 9.4 fL (7.4-10.4); Platelet Count 172 thou/uL (130-400); RBC Distribution Width 13.6 % (11.5-14.5); Red Blood Cell (RBC) Count 4.21 mill/uL (4.70-6.10); White Blood Cell (WBC) Count 16.6 thou/uL (4.8-10.8)
[2021-03-07 07:21] LABS: Anion Gap 12 mmol/L (10-20); BUN (Urea Nitrogen) 30 mg/dL (8.4-25.7); Calc. Creatinine Clearance 116 mL/min (70-130); Calcium 8.7 mg/dL (7.8-10.44); Carbon Dioxide 21 mmol/L (23-31); Chloride 116 mmol/L (98-107); Glucose 138 mg/dL (83-110); Potassium 4.4 mmol/L (3.5-5.1); Sodium 145 mmol/L (136-145)
[2021-03-07 07:56] LABS: Band 2 % (5-11); Lymphocytes 7 % (21-51); MDiff Complete? YES; Monocytes 2 % (0-10); Neutrophil 88 % (42-75); Platelet Morphology Comment Appears Adequate; RBC Morphology Normal; Reactive Lymphocytes 1 % (0-10)
[2021-03-07] MEDS: Aspirin 81 mg Enteric Coated Tablet PO SCH (09:44)
[2021-03-07] MEDS: Ascorbic Acid 500 mg Chewable Tablet PO SCH ×2 (09:44→21:31)
[2021-03-07] MEDS: BARICITINIB 2 MG TAB PO SCH (09:45)
[2021-03-07] MEDS: Finasteride 5 MG TAB PO SCH (09:47)
[2021-03-07] MEDS: Metoprolol Tartrate 25 MG TAB PO SCH ×2 (09:47→21:32)
[2021-03-07] MEDS: Dexamethasone 10 MG/ML VIAL SLOW IVP SCH (09:49)
[2021-03-07] MEDS: Enoxaparin Sodium 120 MG/0.8 ML SYRINGE SC SCH ×2 (09:49→21:46)
[2021-03-07] MEDS: Zinc Sulfate 220 MG CAP PO SCH (09:52)
[2021-03-07] MEDS: VANCOMYCIN 1.75 GM/350 ML BAG 1.75 GM in Premix Bag 1 BAG IVPB SCH (17:30)
[2021-03-07] MEDS: Amiodarone 200 MG TAB PO SCH (21:31)
[2021-03-07] MEDS: Lorazepam 2 MG/ML VIAL SLOW IVP PRN (21:47)
[2021-03-08] MEDS: Albuterol 200 PUFF (6.7GM INHALER) INH SCH ×4 (01:59→19:09)
[2021-03-08] MEDS: Lorazepam 2 MG/ML VIAL SLOW IVP PRN ×2 (03:52→21:28)
[2021-03-08] MEDS ORDERED: hydrALAZINE 20 MG/ML VIAL SLOW IVP PRN (04:00)
[2021-03-08] MEDS ORDERED: Dextrose 5% in Water 1,000 ML IV PRN (04:02)
[2021-03-08] MEDS ORDERED: Dextrose 50% Abboject 50 ML SYRINGE SLOW IVP PRN (04:02)
[2021-03-08] MEDS: MEROPENEM 1 GM/50 ML 1 GM in Premix Bag 1 BAG IVPB SCH ×3 (04:58→21:25)
[2021-03-08] MEDS: Enoxaparin Sodium 120 MG/0.8 ML SYRINGE SC SCH ×2 (10:22→21:26)
[2021-03-08] MEDS ORDERED: GASTROGRAFIN 30 ML BOT ONE (10:23)
[2021-03-08] MEDS: Dexamethasone 10 MG/ML VIAL SLOW IVP SCH (10:27)
[2021-03-08] MEDS: Amiodarone 200 MG TAB PO SCH ×2 (10:47→21:26)
[2021-03-08] MEDS: Aspirin 81 mg Enteric Coated Tablet PO SCH (10:48)
[2021-03-08] MEDS: Ascorbic Acid 500 mg Chewable Tablet PO SCH ×2 (10:48→21:26)
[2021-03-08] MEDS: BARICITINIB 2 MG TAB PO SCH ×2 (10:48→16:04)
[2021-03-08] MEDS: Finasteride 5 MG TAB PO SCH (10:48)
[2021-03-08] MEDS: Metoprolol Tartrate 25 MG TAB PO SCH ×2 (10:49→21:26)
[2021-03-08] MEDS: Zinc Sulfate 220 MG CAP PO SCH (10:49)
[2021-03-08 13:23] LABS: Hemoglobin 12.9 g/dL (14.0-18.0); Mean Corpuscular HGB CONC 32.4 g/dL (32.0-36.0); Mean Corpuscular Hemoglobin 30.5 pg (27.0-31.0); Mean Corpuscular Volume 94.2 fL (78.0-98.0); Mean Platelet Volume 9.5 fL (7.4-10.4); Platelet Count 174 thou/uL (130-400); RBC Distribution Width 13.8 % (11.5-14.5); Red Blood Cell (RBC) Count 4.24 mill/uL (4.70-6.10); White Blood Cell (WBC) Count 16.5 thou/uL (4.8-10.8)
[2021-03-08 13:49] LABS: Anion Gap 11 mmol/L (10-20); BUN (Urea Nitrogen) 27 mg/dL (8.4-25.7); CRP (Inflammatory) 3.52 mg/dL (= or < 0.5); Calc. Creatinine Clearance 128 mL/min (70-130); Calcium 8.5 mg/dL (7.8-10.44); Carbon Dioxide 27 mmol/L (23-31); Chloride 114 mmol/L (98-107); Glucose 95 mg/dL (83-110); Potassium 4.5 mmol/L (3.5-5.1); Sodium 147 mmol/L (136-145)
[2021-03-08 14:15] LABS: Lymphocytes 3 % (21-51); MDiff Complete? YES; Monocytes 2 % (0-10); Neutrophil 95 % (42-75); Platelet Morphology Comment Appears Adequate; Polychromasia SLIGHT = 2-3 cells (100X) (0-2/hpf)
[2021-03-08] MEDS: Acetaminophen 325 MG TAB PO PRN (15:41)
[2021-03-08] MEDS: VANCOMYCIN 1.75 GM/350 ML BAG 1.75 GM in Premix Bag 1 BAG IVPB SCH (15:42)
[2021-03-09] MEDS: Albuterol 200 PUFF (6.7GM INHALER) INH SCH ×5 (01:32→23:16)
[2021-03-09] MEDS: MEROPENEM 1 GM/50 ML 1 GM in Premix Bag 1 BAG IVPB SCH ×3 (04:10→19:48)
[2021-03-09] MEDS: Lorazepam 2 MG/ML VIAL SLOW IVP PRN ×2 (04:11→22:26)
[2021-03-09] MEDS: Aspirin 81 mg Enteric Coated Tablet PO SCH (09:48)
[2021-03-09] MEDS: BARICITINIB 2 MG TAB PO SCH (09:48)
[2021-03-09] MEDS: Ascorbic Acid 500 mg Chewable Tablet PO SCH ×2 (09:48→19:50)
[2021-03-09] MEDS: Zinc Sulfate 220 MG CAP PO SCH (09:49)
[2021-03-09] MEDS: Amiodarone 200 MG TAB PO SCH ×2 (09:49→19:50)
[2021-03-09] MEDS: Finasteride 5 MG TAB PO SCH (09:49)
[2021-03-09] MEDS: Enoxaparin Sodium 120 MG/0.8 ML SYRINGE SC SCH ×2 (09:50→19:50)
[2021-03-09] MEDS: Dexamethasone 10 MG/ML VIAL SLOW IVP SCH (09:50)
[2021-03-09] MEDS: Metoprolol Tartrate 25 MG TAB PO SCH ×2 (10:15→19:51)
[2021-03-09] MEDS: VANCOMYCIN 1.75 GM/350 ML BAG 1.75 GM in Premix Bag 1 BAG IVPB SCH (16:08)
[2021-03-09 16:15] LABS: Vancomycin, Trough 17.9 ug/mL
[2021-03-10] MEDS: MEROPENEM 1 GM/50 ML 1 GM in Premix Bag 1 BAG IVPB SCH ×3 (04:33→20:03)
[2021-03-10] MEDS: Albuterol 200 PUFF (6.7GM INHALER) INH SCH ×3 (05:33→18:39)
[2021-03-10] MEDS ORDERED: Aspirin 81 mg Enteric Coated Tablet PER TUBE SCH (09:00)
[2021-03-10] MEDS: Ascorbic Acid 500 mg Chewable Tablet PO SCH ×2 (09:29→20:03)
[2021-03-10] MEDS: Amiodarone 200 MG TAB PO SCH ×2 (09:29→20:03)
[2021-03-10] MEDS: Finasteride 5 MG TAB PO SCH (09:30)
[2021-03-10] MEDS: Zinc Sulfate 220 MG CAP PO SCH (09:30)
[2021-03-10] MEDS: Metoprolol Tartrate 25 MG TAB PO SCH ×2 (09:30→20:03)
[2021-03-10] MEDS: Enoxaparin Sodium 120 MG/0.8 ML SYRINGE SC SCH ×2 (09:31→20:04)
[2021-03-10] MEDS: Dexamethasone 10 MG/ML VIAL SLOW IVP SCH (09:41)
[2021-03-10] MEDS: Aspirin Chewable 81 MG TAB PER TUBE SCH (09:41)
[2021-03-10] MEDS: BARICITINIB 2 MG TAB PO SCH (09:41)
[2021-03-10] MEDS: Pantoprazole 40 MG VIAL IVP SCH (09:41)
[2021-03-10] MEDS: VANCOMYCIN 1.75 GM/350 ML BAG 1.75 GM in Premix Bag 1 BAG IVPB SCH (16:32)
[2021-03-10] MEDS: Lorazepam 2 MG/ML VIAL SLOW IVP PRN (20:03)
[2021-03-11] MEDS: Albuterol 200 PUFF (6.7GM INHALER) INH SCH ×4 (02:29→18:52)
[2021-03-11] MEDS: MEROPENEM 1 GM/50 ML 1 GM in Premix Bag 1 BAG IVPB SCH (04:55)
[2021-03-11] MEDS: Dexamethasone 10 MG/ML VIAL SLOW IVP SCH (08:25)
[2021-03-11] MEDS: Enoxaparin Sodium 120 MG/0.8 ML SYRINGE SC SCH ×2 (08:25→20:57)
[2021-03-11] MEDS: Pantoprazole 40 MG VIAL IVP SCH (08:25)
[2021-03-11] MEDS: Zinc Sulfate 220 MG CAP PO SCH (11:37)
[2021-03-11] MEDS: Ascorbic Acid 500 mg Chewable Tablet PO SCH ×2 (11:37→20:57)
[2021-03-11] MEDS: Aspirin Chewable 81 MG TAB PER TUBE SCH (11:37)
[2021-03-11] MEDS: Amiodarone 200 MG TAB PO SCH ×2 (11:37→20:57)
[2021-03-11] MEDS: Metoprolol Tartrate 25 MG TAB PO SCH ×2 (11:37→20:56)
[2021-03-11] MEDS: Finasteride 5 MG TAB PO SCH (11:37)
[2021-03-11] MEDS: BARICITINIB 2 MG TAB PO SCH (11:42)
[2021-03-11] MEDS ORDERED: Dexamethasone 4 mg/ml Vial SLOW IVP SCH (16:15)
[2021-03-11] MEDS: Acetaminophen 325 MG TAB PO PRN (17:34)
[2021-03-11] MEDS: Melatonin 3 MG TAB PO SCH (20:56)
[2021-03-12] MEDS: Albuterol 200 PUFF (6.7GM INHALER) INH SCH ×4 (01:45→19:12)
[2021-03-12] MEDS: Finasteride 5 MG TAB PO SCH (09:14)
[2021-03-12] MEDS: Zinc Sulfate 220 MG CAP PO SCH (09:14)
[2021-03-12] MEDS: Amiodarone 200 MG TAB PO SCH ×2 (09:14→21:54)
[2021-03-12] MEDS: Ascorbic Acid 500 mg Chewable Tablet PO SCH ×2 (09:14→21:55)
[2021-03-12] MEDS: Aspirin Chewable 81 MG TAB PER TUBE SCH (09:14)
[2021-03-12] MEDS: BARICITINIB 2 MG TAB PO SCH (09:14)
[2021-03-12] MEDS: Metoprolol Tartrate 25 MG TAB PO SCH ×2 (09:14→21:55)
[2021-03-12] MEDS: Dexamethasone 10 MG/ML VIAL SLOW IVP SCH (09:15)
[2021-03-12] MEDS: Dexamethasone 4 mg/ml Vial SLOW IVP SCH (09:15)
[2021-03-12] MEDS: Enoxaparin Sodium 120 MG/0.8 ML SYRINGE SC SCH ×2 (09:15→21:55)
[2021-03-12] MEDS: Pantoprazole 40 MG VIAL IVP SCH (09:17)
[2021-03-12 09:19] LABS: ALT (SGPT) 15 U/L (8-55); AST (SGOT) 18 U/L (5-34); Albumin 2.5 g/dL (3.4-4.8); Alkaline Phosphatase 103 U/L (40-110); Bilirubin, Direct 0.4 mg/dL (0.1-0.3); Bilirubin, Total 1.2 mg/dL (0.2-1.2); Protein, Total 5.6 g/dL (5.8-8.1)
[2021-03-12] MEDS: Melatonin 3 MG TAB PO SCH (21:55)
[2021-03-13 00:24] LABS: Bacteria/HPF None Seen HPF (None Seen); Bilirubin Negative (Negative); Blood, Urine Negative (Negative); Clarity Clear (Clear); Glucose, Urine (Dipstick) Normal (Negative); Ketone, Urine Negative (Negative); Leukocyte Negative Leu/uL (Negative); Nitrite Negative (Negative); Protein, Urine (Dipstick) 20 mg/dL (Neg-Trace); RBC/HPF 0-3 HPF (0-3); Specific Gravity, Urine 1.025 (1.002-1.036); Squamous Epithelial None Seen HPF (0-3); Urobilinogen 6 mg/dL (Less than 2); WBC/HPF 0-3 HPF (0-3); pH, Urine 6.5 (5.0-9.0)
[2021-03-13 00:28] LABS: Urine Culture Reflex No No
[2021-03-13] MEDS: Albuterol 200 PUFF (6.7GM INHALER) INH SCH ×4 (02:00→18:52)
[2021-03-13] MEDS: Zinc Sulfate 220 MG CAP PO SCH (08:38)
[2021-03-13] MEDS: Ascorbic Acid 500 mg Chewable Tablet PO SCH ×2 (08:38→21:39)
[2021-03-13] MEDS: Enoxaparin Sodium 120 MG/0.8 ML SYRINGE SC SCH ×2 (08:38→21:40)
[2021-03-13] MEDS: Amiodarone 200 MG TAB PO SCH ×2 (08:39→21:38)
[2021-03-13] MEDS: BARICITINIB 2 MG TAB PO SCH (08:39)
[2021-03-13] MEDS: Dexamethasone 4 mg/ml Vial SLOW IVP SCH (08:39)
[2021-03-13] MEDS: Aspirin Chewable 81 MG TAB PER TUBE SCH (08:39)
[2021-03-13] MEDS: Finasteride 5 MG TAB PO SCH (08:39)
[2021-03-13] MEDS: Pantoprazole 40 MG VIAL IVP SCH (08:39)
[2021-03-13] MEDS: Metoprolol Tartrate 25 MG TAB PO SCH ×2 (08:40→21:39)
[2021-03-13 09:18] VITALS: BMI 35.0
[2021-03-13] MEDS ORDERED: Morphine 2 MG/ML VIAL SLOW IVP PRN (15:00)
[2021-03-13] MEDS ORDERED: Lorazepam 2 MG/ML VIAL SLOW IVP PRN ×2 (15:00→15:11)
[2021-03-13] MEDS ORDERED: DISCONTINUE PREVIOUS NARCOTIC PAIN MEDICATIONS AND BENZODIAZEPINES FS SCH (15:00)
[2021-03-13] MEDS ORDERED: Propofol BOLUS 1,000 MG/100 ML VIAL IV PRN (15:00)
[2021-03-13] MEDS ORDERED: Fentanyl CADD 100 ML IV SCH (15:00)
[2021-03-13] MEDS ORDERED: Propofol 1,000 MG/100 ML VIAL IV PRN (15:00)
[2021-03-13] MEDS ORDERED: Fentanyl BOLUS 250 ML IVPB PRN (15:00)
[2021-03-13] MEDS ORDERED: Docusate 100 MG CAP PO SCH (21:00)
[2021-03-13] MEDS: Melatonin 3 MG TAB PO SCH (21:40)
[2021-03-14] MEDS: Albuterol 200 PUFF (6.7GM INHALER) INH SCH ×5 (00:35→23:48)
[2021-03-14] MEDS ORDERED: Pantoprazole 40 MG VIAL IVP SCH (09:00)
[2021-03-14] MEDS ORDERED: Polyethylene Glycol 3350 17 GM Packet PO SCH (09:00)
[2021-03-14] MEDS: Dexamethasone 4 mg/ml Vial SLOW IVP SCH (09:22)
[2021-03-14] MEDS: Ascorbic Acid 500 mg Chewable Tablet PO SCH ×2 (09:22→20:11)
[2021-03-14] MEDS: Metoprolol Tartrate 25 MG TAB PO SCH ×2 (09:22→20:12)
[2021-03-14] MEDS: Zinc Sulfate 220 MG CAP PO SCH (09:22)
[2021-03-14] MEDS: Amiodarone 200 MG TAB PO SCH ×2 (09:23→20:11)
[2021-03-14] MEDS: Finasteride 5 MG TAB PO SCH (09:23)
[2021-03-14] MEDS: BARICITINIB 2 MG TAB PO SCH (09:23)
[2021-03-14] MEDS: Enoxaparin Sodium 120 MG/0.8 ML SYRINGE SC SCH ×2 (09:23→20:11)
[2021-03-14] MEDS: Aspirin Chewable 81 MG TAB PER TUBE SCH (09:23)
[2021-03-14] MEDS: Pantoprazole 40 MG VIAL IVP SCH (09:25)
[2021-03-14] MEDS: Acetaminophen 325 MG TAB PO PRN (11:45)
[2021-03-14] MEDS: Melatonin 3 MG TAB PO SCH (20:12)
[2021-03-15] MEDS: Albuterol 200 PUFF (6.7GM INHALER) INH SCH ×3 (06:05→18:29)
[2021-03-15] MEDS: Ascorbic Acid 500 mg Chewable Tablet PO SCH ×2 (08:52→21:16)
[2021-03-15] MEDS: Acetaminophen 325 MG TAB PO PRN (08:52)
[2021-03-15] MEDS: BARICITINIB 2 MG TAB PO SCH (08:52)
[2021-03-15] MEDS: Zinc Sulfate 220 MG CAP PO SCH (08:52)
[2021-03-15] MEDS: Aspirin Chewable 81 MG TAB PER TUBE SCH (08:52)
[2021-03-15] MEDS: Dexamethasone 4 mg/ml Vial SLOW IVP SCH (08:54)
[2021-03-15] MEDS: Amiodarone 200 MG TAB PO SCH ×2 (08:54→21:15)
[2021-03-15] MEDS: Enoxaparin Sodium 120 MG/0.8 ML SYRINGE SC SCH ×2 (08:55→21:15)
[2021-03-15] MEDS: Finasteride 5 MG TAB PO SCH (08:55)
[2021-03-15] MEDS: Pantoprazole 40 MG VIAL IVP SCH (08:56)
[2021-03-15] MEDS: Metoprolol Tartrate 25 MG TAB PO SCH ×2 (09:47→21:16)
[2021-03-15 11:36] LABS: ALT (SGPT) 15 U/L (8-55); AST (SGOT) 18 U/L (5-34); Albumin 2.5 g/dL (3.4-4.8); Alkaline Phosphatase 85 U/L (40-110); Bilirubin, Direct 0.5 mg/dL (0.1-0.3); Bilirubin, Total 1.2 mg/dL (0.2-1.2); Protein, Total 4.8 g/dL (5.8-8.1)
[2021-03-15] MEDS: Melatonin 3 MG TAB PO SCH (21:16)
[2021-03-16] MEDS: Albuterol 200 PUFF (6.7GM INHALER) INH SCH ×4 (01:04→21:40)
[2021-03-16] MEDS: Aspirin Chewable 81 MG TAB PER TUBE SCH (09:05)
[2021-03-16] MEDS: Amiodarone 200 MG TAB PO SCH ×2 (09:05→21:00)
[2021-03-16] MEDS: Ascorbic Acid 500 mg Chewable Tablet PO SCH ×2 (09:05→20:22)
[2021-03-16] MEDS: BARICITINIB 2 MG TAB PO SCH (09:05)
[2021-03-16] MEDS: Finasteride 5 MG TAB PO SCH (09:05)
[2021-03-16] MEDS: Zinc Sulfate 220 MG CAP PO SCH (09:06)
[2021-03-16] MEDS: Enoxaparin Sodium 120 MG/0.8 ML SYRINGE SC SCH ×2 (09:06→20:22)
[2021-03-16] MEDS: Metoprolol Tartrate 25 MG TAB PO SCH (09:06)
[2021-03-16] MEDS: Pantoprazole 40 MG VIAL IVP SCH (09:07)
[2021-03-16] MEDS: Dexamethasone 4 mg/ml Vial SLOW IVP SCH (09:07)
[2021-03-16] MEDS: Acetaminophen 325 MG TAB PO PRN (09:15)
[2021-03-16] MEDS ORDERED: Midodrine HCl 5 MG TAB PO SCH (12:00)
[2021-03-16] MEDS ORDERED: Albumin 25% 25 GM/100 ML BOT IVPB SCH (12:00)
[2021-03-16] MEDS ORDERED: Furosemide 40 MG/4 ML VIAL SLOW IVP SCH (14:00)
[2021-03-16] MEDS: Melatonin 3 MG TAB PO SCH (20:22)
[2021-03-16 23:33] VITALS: BP 104/59; TEMP 98.2
[2021-03-17] MEDS: Albuterol 200 PUFF (6.7GM INHALER) INH SCH (00:13)
[2021-03-17] MEDS ORDERED: EPINEPHrine 1 MG/10 ML Abboject SYRINGE ONE (03:10)
[2021-03-17] MEDS ORDERED: Sodium Bicarb 50 MEQ/50 ML Abboject 8.4% SYRINGE ONE (03:10)
[2021-03-17] MEDS ORDERED: Calcium Chloride 1 GM/10 ML Abboject SYRINGE ONE (03:10)
== END 2021-03-17 03:32 | disposition expired | DRG 871 ==
LOC: ERS 08:55 → 2SW 12:12
PROVIDERS: ADMIT Internal Medicine; ATTEND Internal Medicine
PROC: 8E0ZXY6 Isolation (ICD-10-PCS; principal; 2021-02-23)
PROC: 3E0333Z Introduction of Anti-inflammatory into Peripheral Vein, Percutaneous Approach (ICD-10-PCS; 2021-02-23)
PROC: XW0DXM6 Introduction of Baricitinib into Mouth and Pharynx, External Approach, New Technology Group 6 (ICD-10-PCS; 2021-03-06)
PROC: 0DH67UZ Insertion of Feeding Device into Stomach, Via Natural or Artificial Opening (ICD-10-PCS; 2021-03-06)
PROC: 5A12012 Performance of Cardiac Output, Single, Manual (ICD-10-PCS; 2021-03-17)
DX: A41.89 Other specified sepsis (principal); U07.1 COVID-19; J12.82 Pneumonia due to coronavirus disease 2019; J96.01 Acute respiratory failure with hypoxia; G93.41 Metabolic encephalopathy; E87.2 Acidosis; I47.1 Supraventricular tachycardia; I47.2 Ventricular tachycardia; R65.20 Severe sepsis without septic shock; Z66 Do not resuscitate; H40.9 Unspecified glaucoma; Z96.641 Presence of right artificial hip joint; L40.0 Psoriasis vulgaris; I87.8 Other specified disorders of veins; T38.0X5A Adverse effect of glucocorticoids and synthetic analogues, initial encounter; R62.7 Adult failure to thrive; E66.9 Obesity, unspecified; E78.2 Mixed hyperlipidemia; I35.0 Nonrheumatic aortic (valve) stenosis; R13.12 Dysphagia, oropharyngeal phase; I11.9 Hypertensive heart disease without heart failure; I46.9 Cardiac arrest, cause unspecified; I95.9 Hypotension, unspecified; Z88.2 Allergy status to sulfonamides; Z79.899 Other long term (current) drug therapy; Z68.35 Body mass index [BMI] 35.0-35.9, adult; Z78.1 Physical restraint status; Z86.73 Personal history of transient ischemic attack (TIA), and cerebral infarction without residual deficits
CPT/HCPCS: 36415; 36416; 36600; 70450; 71045; 71275; 74018; 74230; 80048; 80053; 80076; 80202; 81001; 81003; 81015; 82140; 82553; 82607; 82728; 82746; 82805; 83605; 83735; 83880; 84439; 84443; 84481; 84484; 85025; 85379; 85652; 86140; 87040; 87086; 93005; 93010; 93306; 93923; 93970; 94760; 96365; 96367; 96372; 96375; C9113; J0171; J0360; J0456; J0696; J1100; J1650; J1940; J2060; J2185; J2358; J3370; J3490; J7030; J7050; J7070; J8540; P9047; Q0163; Q9963; Q9967; U0002